=== PATIENT | female | born 1950 | race Caucasian/White ===

== ENCOUNTER 2024-09-24 07:28 | Emergency (ER) | payer OTHER, SELFPAY ==
[2024-09-24 07:35] VITALS: BP 151/77
--- NOTE | 2024-09-24 08:11 | ED.GENMED ---
History of Present Illness
General
Chief Complaint: Fall
Source: patient
Exam Limitations: none
Time Seen by Provider: 09/24/24 08:05
Nursing documentation reviewed up to this point in time: agreed with
History of Present Illness
History of Present Illness:
74-year-old female with past medical history of hypertension hyperlipidemia presenting to the emergency department today after tripping over the edge of her bed hitting the back of her head sustaining a small cut did not lose consciousness otherwise
has ongoing posterior head discomfort some neck stiffness. Denies numbness weakness chest pain shortness or any extremity discomfort.
Past History
Past History
ED Past Medical History: Other (heart murmur)
ED Past Surgical History: None
Patient has exhibited threatening behavior?: No
Social History
Tobacco: Non-smoker
Family History
Family History: Other
Review of Systems
Review of Systems
Allergies reviewed?: Yes
All Other Systems: ROS reviewed and negative except as documented in HPI and ROS
Phy Exam
Physical Exam
Physical Exam:
GENERAL: Alert , in no apparent distress
EYE: pupils equal and reactive
NECK: Supple, no significant adenopathy.
ENT: Superficial abrasion to the occipital scalp no gaping wound no foreign body seen o/p clr, mmm.
CARDIAC: Regular rate and rhythm .
LUNGS: Clear breath sounds bilaterally, no acute respiratory distress, no wheezes/rales/rhonchi
ABDOMEN: Soft, without focal tenderness, no r/g, no cvat
NEUROLOGICAL: Alert and oriented, no focal neuro deficits 5-5 upper and lower extremity strength normal sensation when palpating bilaterally normal finger-nose and heel nobles no pronator drift
SKIN: Warm and dry, skin intact.
MUSCULOSKELETAL: No edema, well perfused.
PSYCH: Normal and appropriate interaction.
Course
Orders/Labs/Results
Orders:
Orders
09/24/24 08:08
CT Cervical Spine W/o Iv Contr Urgent
Comment:
Reason For Exam: neck pain after fll
CT Head W/o Iv Contrast Urgent
Comment:
Reason For Exam: fall hit back of head
Vital Signs
Initial and Last Documented VS:
Initial Vital Signs
Temp Pulse Resp BP Pulse Ox
98.8 F 91 18 151/77 98
09/24/24 07:35 09/24/24 07:35 09/24/24 07:35 09/24/24 07:35 09/24/24 07:35
Last Documented Vital Signs
Temp Pulse Resp BP Pulse Ox
98.8 F 91 18 151/77 98
09/24/24 07:35 09/24/24 07:35 09/24/24 07:35 09/24/24 07:35 09/24/24 07:35
MDM/Problems Addressed
MDM/Problems Addressed:
74-year-old female presenting to the emergency department after mechanical fall hitting the back of her head no loss of consciousness not on blood thinners. Does have a small abrasion to the occipital scalp. Plan for CT scan of the head and neck
for further assessment. CT scan without emergent findings. Patient was also found to have a hematoma to her left low back but no tenderness to the midline or hip walking normally no abdominal pain. Advised ice the area. Otherwise stable for
outpatient management return precautions given.
*Critical Care Note
Total Time (30-74mins, 75-104mins- exclusive of procedures): Not Applicable
ED Attending Note
-
Portions of this chart may have been created with voice recognition software.� Occasional wrong word or��sound alike� substitutions may have occurred due to the inherent limitations of voice recognition software.
Discharge Plan
Departure
Patient Disposition: Home (Routine Discharge)
Date of Disposition: 09/24/24
Time of Disposition: 08:57
Patient with high blood pressure during this ER visit?: No
Condition: Good
Covid-19: Not Applicable
Discharge Problem:
Fall, Abrasion of scalp, Hematoma of back
Instructions: Contusion (DC), Preventing falls in adults
Referrals:
Mackenzie Barlow, [Family Provider] -
Activity Restrictions/Additional Instructions:
You came to the emergency department today after a fall. Here you had a normal CT scan of your head and neck. Please ice and rest over the next few days as symptoms will hopefully improve. Return to the emergency department for any worsening, new
or concerning symptoms.
Interventions
Interventions:
*Risk Screen - Suicide Last Done: 09/24/24 07:35
*General Assessment Last Done: 09/24/24 07:35
*Neglect/Abuse Screening Last Done: 09/24/24 07:35
*ED COVID-19 Vaccine History Last Done: 09/24/24 07:35
Discharge Date and Time
Print Language: MAORI
[2024-09-24] MEDS: ADACEL 0.5 ML IM (09:02)
== END 2024-09-24 09:07 | disposition home or self-care (01) ==
LOC: EMR 07:28
PROVIDERS: EMERGENCY PHYSICIAN Emergency Medicine; FAMILY PHYSICIAN Internal Medicine
DX: S00.01XA Abrasion of scalp, initial encounter (principal); W19.XXXA Unspecified fall, initial encounter; Z23 Encounter for immunization; I10 Essential (primary) hypertension; E78.00 Pure hypercholesterolemia, unspecified
CPT/HCPCS: 99284; 90471; 70450; 72125; 90715